=== PATIENT | female | born 1995 | race Caucasian/White ===

== ENCOUNTER 2016-10-11 14:36 | Emergency (ER) | payer BC ==
[~2016-10-11] VITALS: Ht 152.4 cm; Wt 48.2 kg
[~2016-10-11 14:36] MED LIST: AMOX1TAB15 PO; CITA40TA6 PO; CLON0.5T4 PO
[2016-10-11 14:40] VITALS: Ht 152.4 cm; Wt 48.2 kg
--- NOTE | 2016-10-11 14:50 | NUR ---
STATUS WORKING ON THE COMPUTER IN THE LOBBY.
--- NOTE | 2016-10-11 15:57 | NUR ---
REPORT REC'D FROM MICHAEL CHAUDHARI. THIS RN WILL RESUME CARE.
--- NOTE | 2016-10-11 16:07 | ERPDOC ---
Departure Disposition Decision Date: October 11, 2016 Disposition Decision Time: 17:30 Disposition: 01 DISCHARGED HOME, SELF-CARE Impression Impression Impression: Primary Impression: Anxiety Severity: Moderate Condition: Improved Seen By: Mid-level only Referrals: RISSA WYNN DO (Family) Patient Instructions: Anxiety (ED), Panic Attack (ED) Problems/Meds/Labs Reviewed?: Yes Medications reviewed and manag: Yes Additional Instructions: You may take lorazepam 1mg, 1/2-1 tab every 8 [address] Follow up with Dr. Wynn Thursday for re-evaluation. Follow treatment plan. Follow up care ordered?: Yes Mental Status: Alert, Oriented Scripts Lorazepam (Lorazepam) 1 Mg Tablet 1 TAB PO TID for ANXIETY, #10 TAB Prov: GIULIA STOCKTON APRN 10/11/16 HPI - Psychosocial General Chief Complaint: Psychiatric Problems Stated Complaint: PANIC ATTACKS, INVASIVE THOUGHTS, DEPRESSION Time Seen by MD: 16:05 Source: patient HPI - Psychosocial Initial Comments 21-year-old female presents to ER with complaint of having panic and anxiety attacks frequently over the past 24-48 hours. Patient states that her boyfriend of 9 years recently left her for a man. Patient was recently changed from citalopram to Lexapro. She was given Klonopin Rx. to easy her anxiety while making adjustment with change to Lexapro per patient. Patient states she has been using more of the Klonopin that was ordered by her PCP for intermittent anxiety over the past few days. Refilled prescription on October 05 and has been taking up to 4 tabs daily. States she does not know what happen to the bottle she cannot find it at this time. States that the Klonopin was really not helping her much. Patient denies any suicidal ideation or plan to harm herself. She reports 10 pound weight loss over the last 4 weeks. Associated Symptoms: anxiety, impaired concentration, insomnia, DENIES: ingestion, injury, suicidal ideation Allergies: Coded Allergies: No Known Allergies (Unverified , 10/11/16) Past History Past Medical History Metabolic: DENIES: diabetes Cardiac: DENIES: angina Respiratory: DENIES: asthma GI: DENIES: ulcers Female: DENIES: renal insufficiency Neurological: DENIES: seizures Musculoskeletal: DENIES: rheumatoid arthritis Psychological: anxiety, depression Surgical History General: tonsils Family History Family PMH: FOUND: other (noncontributory) Social History Second Hand Exposure: Yes Substance Use Type: does not use Alcohol Intake: occasionally Marital Status: Single Housing: apartment Household Members: significant other Review of Systems Constitutional Constitutional: appetite decrease, weight loss, DENIES: chills, dizziness, fever, weakness Eyes General: DENIES: erythema, exudate Lids/Accessories: DENIES: erythema, swelling ENMT Ears: DENIES: pain Hearing: DENIES: hearing loss Sinuses: DENIES: congestion, rhinorrhea Mouth/Throat: DENIES: sore throat Cardiovascular Cardiac: DENIES: chest pain, murmur Rhythm/Rate: DENIES: palpitations Pulmonary Respiratory: DENIES: cough, dyspnea GI Upper Abdomen: DENIES: nausea, pain, vomiting Lower Abdomen: DENIES: diarrhea, pain General: DENIES: dysuria, pain Musculoskeletal General: DENIES: joint pain, pain, tenderness Integumentary Skin: DENIES: color change, itching, rash Neurological General: DENIES: ataxia, change in strength, numbness, paralysis/paresis, weakness Psychiatric Psychiatric: DENIES: anxiety, depression, nervousness Physical Exam General General Nourishment: well nourished, well developed, adult Vitals and Pain First Documented Vital Signs Date Time Temp Pulse Resp B/P Pulse Ox O2 Delivery O2 Flow Rate FiO2 10/11/16 14:40 98.4 80 20 117/65 98 Room Air Weight: Kilograms: 48.180 Height (feet): 5 Height (inches): 0 Triage Pain Scale: Eyes (brief) Eyes Brief: found: EOMI, PERRL ENMT (brief) ENMT Brief: FOUND: TM clear, TM good light reflex, mucosa moist, NOT FOUND: nasal exudate, nasal swelling, pharnyx erythema Neck (brief) Neck: FOUND: trachea midline, NOT FOUND: adenopathy, spasm, tenderness, thyromegaly Respiratory (brief) Respiratory: FOUND: clear all pitts, equal bilaterally, symmetrical Cardiovascular (brief) Cardiac: FOUND: regular rate, regular rhythm Pulses: strong Abdomen (brief) Abdominal Brief: FOUND: bowel normo active x4, soft, NOT FOUND: distended, tender Musculoskeletal (brief) Musculoskeletal Brief: NOT FOUND: deformity, tenderness Integumentary (brief) Integumentary Brief: FOUND: dry, pink, warm Neurologic (brief) Neurological Brief: FOUND: CN w/o gross def to obs, motor-no gross deficits, sensory-no gross deficits Psychiatric (brief) Psychiatric Brief: FOUND: alert, normal affect, oriented Differential Diagnoses Considering: Anxiety, Bipolar, Borderline PD, Depression, Acute Psychosis Progress Results/Orders Orders Procedure Category Date Status Time LAB 10/11/16 Complete Qualitative, Urine 16:24 Lorazepam (Ativan) PHA 10/11/16 Complete 16:30 Lab Results Laboratory Tests Test 10/11/16 16:34 Urine Test Negative Medications Current ED Medications Lorazepam (Ativan) 1 mg O ONCE PO Last administered on 10/11/16t 16:33; Start 10/11/16 at 16:30; Stop 10/11/16 at 16:31; Status DC Progress Progress Patient reports feeling less anxious after 1mg of lorazepam. Patient's mother states that she is living with her now since breaking up with her boyfriend. Mother states that she will keep lorazepam in her discussion so the patient cannot access it without consulting to her which patient agrees with. I discussed close follow-up with PCP Thursday for reevaluation, and possible referral for psychological counseling. Patient and her mother verbalized understanding of treatment plan, follow-up and return precautions. She is discharged improved with her mother. GIULIA STOCKTON APRN October 11, 2016 16:07
[2016-10-11] MEDS ORDERED: ESCI20TA PO (16:29)
[2016-10-11] MEDS ORDERED: CLON1TAB23 PO (16:29)
[2016-10-11] MEDS ORDERED: LORAZEPAM 1 MG TABLET PO ONE (16:30)
[2016-10-11] MEDS ORDERED: LORA1TAB3 PO (17:36)
--- NOTE | 2016-10-11 17:38 | NUR ---
STATUS PT REPORTS FEELING BETTER AFTER ATIVAN ADM, "JUST SLEEPY, WHICH ISN'T A BAD THING." APPEARS TO BE RESTING COMFORTABLY IN CART. DENIES NEEDS AT THIS TIME. CALL LIGHT WITHIN REACH.
[2016-10-11 18:06] VITALS: BP 112/60; PULSE 66; RESP 18; TEMP 98.4; O2SAT 99
--- NOTE | 2016-10-11 18:06 | NUR ---
DEPART PT GIVEN DI FOR ANXIETY, PANIC ATTACK, LORAZEPAM, F/U. RX PROVIDED FOR F/U. VERBALIZES UNDERSTANDING OF DI. QUESTIONS ASKED/ANSWERED - DENIES FURTHER QUESTIONS/NEEDS AT THIS TIME. PERSONAL BELONGINGS GATHERED. PT AMBULATED/ESCORTED TO ED EXIT - GAIT STABLE, NO SIGN OF DISTRESS AT THIS TIME.
== END 2016-10-11 18:06 | disposition home or self-care (01) ==
LOC: ED 14:36
DX: F41.0 Panic disorder [episodic paroxysmal anxiety] (principal)
CPT/HCPCS: 81025